=== PATIENT | male | born 1950 | race African-American/Black ===

== ENCOUNTER → 2017-10-27 | Outpatient (CLI) | payer MEDICARE, MEDICAID ==
[~2017-10-27] MED LIST: ACET-66; ALLO300 PO; AMLO-511; ASPI-1188 PO; ASPI-891; BUPR75 PO; CLOP75 PO; DICL-290; DIPH50; FAMO-136; ISOS60TA4 PO; MAG355OR32; METO25 PO; MULT-1259 PO; NITR0.4T SL; PSEU60 PO; SIMV-260 PO; TRAM50TA4 PO; TUSSIN; VALS1TAB48; [UNRECOGNIZED DRUG - CODE]
[2017-10-27 10:58] VITALS: BP 112/71
== END | disposition home or self-care (01) ==
LOC: SRCNTR 10:22
PROVIDERS: ATTEND Internal Medicine Cardiovascular Disease
DX: I11.9 Hypertensive heart disease without heart failure (principal); G44.009 Cluster headache syndrome, unspecified, not intractable; E66.9 Obesity, unspecified; I25.10 Atherosclerotic heart disease of native coronary artery without angina pectoris; N40.0 Benign prostatic hyperplasia without lower urinary tract symptoms; Z95.5 Presence of coronary angioplasty implant and graft; M25.552 Pain in left hip
CPT/HCPCS: G0463

== ENCOUNTER → 2017-11-01 | Outpatient (CLI) | payer MEDICARE, OTHER ==
[2017-11-01 15:05] LABS: BASOPHILS % (AUTO) 1.1 % (0.0-2.0); EOSINOPHILS % (AUTO) 3.8 % (1.0-6.0); HEMATOCRIT 40.4 % (41-53); HEMOGLOBIN 13.2 g/dL (13.5-17.5); LYMPHOCYTES # (AUTO) 2.5 K/uL (1.0-4.8); LYMPHOCYTES % (AUTO) 31.7 % (22.0-44.0); MEAN CORPUSCULAR HEMOGLOBIN 29.1 pg (26.0-34.0); MEAN CORPUSCULAR HGB CONC 32.7 G/dL (31.0-37.0); MEAN CORPUSCULAR VOLUME 89 fL (80-100); MONOCYTES # (AUTO) 0.6 K/uL (0.1-1.0); NEUTROPHILS # (AUTO) 4.4 K/uL (1.8-7.7); NEUTROPHILS % (AUTO) 55.4 % (40.0-70.0); PLATELET COUNT (AUTO) 258 K/uL (150-450); RED BLOOD CELL COUNT(AUTO) 4.54 MIL/uL (4.50-5.90); RED CELL DISTRIBUTION WIDTH 15.9 % (11.5-14.5)
[2017-11-01 15:16] LABS: BILIRUBIN,URINE NEGATIVE (NEGATIVE); GLUCOSE, URINE (UA) NEGATIVE (NEGATIVE); KETONES,URINE NEGATIVE (NEGATIVE); LEUKOCYTE ESTERASE ,URINE SMALL (NEGATIVE); NITRATE,URINE NEGATIVE (NEGATIVE); OCCULT BLOOD,URINE NEGATIVE (NEGATIVE); PH,URINE 5.5 (5.0-8.0); PROTEIN,URINE NEGATIVE (NEGATIVE); UROBILINOGEN,URINE 0.2 mg/dL (<=1.0)
[2017-11-01 15:22] LABS: APPEARANCE,URINE HAZY (CLEAR)
[2017-11-01 15:23] LABS: RBC,URINE None Seen /HPF (0-2)
[2017-11-01 15:24] LABS: BACTERIA,URINE Rare /HPF (None Seen); SQUAMOUS EPITHELIAL CELL,UR Few /LPF (None Seen)
[2017-11-01 15:28] LABS: ALANINE AMINOTRANSFERASE 29 U/L (12-78); ALBUMIN 3.9 g/dL (3.4-5.0); ALKALINE PHOSPHATASE 148 U/L (46-116); ANION GAP 9 mmol/L (8-16); ASPARTATE AMINOTRANSFERASE 21 U/L (15-37); BILIRUBIN,TOTAL 0.5 mg/dL (0.1-1.0); CALCIUM, TOTAL 9.2 mg/dL (8.8-10.5); CARBON DIOXIDE 26 mmol/L (22-29); CHLORIDE 105 mmol/L (98-107); CHOL/HDL RATIO 2.6 (4.2-7.3); CHOLESTEROL 103 mg/dL (131-200); CREATININE 1.03 mg/dL (0.60-1.30); GLOMERULAR FILTR. RATE CALC > 60 mL/min (>60); GLUCOSE,RANDOM 99 mg/dL (70-110); HDL CHOLESTEROL 40 mg/dL (40-60); LDL CHOL (CALC.) 46 mg/dL (0-130); POTASSIUM 4.2 mmol/L (3.5-5.1); SODIUM SERUM 140 mmol/L (136-145); THYROID STIMULATING HORMONE 1.75 uIU/mL (0.36-3.74); TOTAL PROTEIN, SERUM 7.9 g/dL (6.4-8.2); TRIGLYCERIDES 84 mg/dL (15-150); UREA NITROGEN, BLOOD 17 mg/dL (7-18)
[2017-11-01 15:41] LABS: PROSTATE SPECIFIC ANTIGEN 0.63 ng/mL (0.00-4.00)
== END | disposition home or self-care (01) ==
LOC: LABPV 14:39
PROVIDERS: ATTEND Internal Medicine Cardiovascular Disease
DX: I10 Essential (primary) hypertension (principal); N40.0 Benign prostatic hyperplasia without lower urinary tract symptoms
CPT/HCPCS: 84153; 84443; 87086

== ENCOUNTER → 2018-01-27 | Outpatient (CLI) | payer MEDICARE, MEDICAID ==
[~2018-01-27] VITALS: Ht 177.8 cm; Wt 88.0 kg
[~2018-01-27] MED LIST changes: -AMLO-511; -ASPI-891; -CLOP75 PO; -DICL-290; -TUSSIN; -VALS1TAB48; -[UNRECOGNIZED DRUG - CODE]
[2018-01-27 10:15] VITALS: BP 98/73
== END | disposition home or self-care (01) ==
LOC: SRCNTR 09:43
PROVIDERS: ATTEND Internal Medicine Cardiovascular Disease
DX: I11.9 Hypertensive heart disease without heart failure (principal); N40.0 Benign prostatic hyperplasia without lower urinary tract symptoms; M47.896 Other spondylosis, lumbar region; M10.9 Gout, unspecified; E78.5 Hyperlipidemia, unspecified; G44.009 Cluster headache syndrome, unspecified, not intractable
CPT/HCPCS: G0463

== ENCOUNTER → 2018-06-01 | Outpatient (CLI) | payer MEDICARE, MEDICAID ==
[~2018-06-01] VITALS: Ht 177.8 cm; Wt 93.0 kg
[2018-06-01 10:40] VITALS: BP 132/68
== END | disposition home or self-care (01) ==
LOC: SRCNTR 10:14
PROVIDERS: ATTEND Internal Medicine Cardiovascular Disease
DX: I11.9 Hypertensive heart disease without heart failure (principal); J43.9 Emphysema, unspecified; E78.5 Hyperlipidemia, unspecified; G47.30 Sleep apnea, unspecified; M19.90 Unspecified osteoarthritis, unspecified site; G89.4 Chronic pain syndrome
CPT/HCPCS: G0463

== ENCOUNTER → 2018-08-15 | Outpatient (CLI) | payer MEDICARE, OTHER ==
[~2018-08-15] MED LIST changes: +BUTA1CAP53 PO; +DIPH25 PO; -FAMO-136; +FAMO-136 PO; +LOSA1TAB7 PO; +PSEU30TA31 PO; +TAMS0.4C32 PO; +[UNRECOGNIZED DRUG - OTHER] PO
[2018-08-15 12:02] LABS: BASOPHILS % (AUTO) 1.2 % (0.0-2.0); EOSINOPHILS % (AUTO) 6.4 % (1.0-6.0); HEMATOCRIT 41.3 % (41-53); HEMOGLOBIN 13.3 g/dL (13.5-17.5); LYMPHOCYTES % (AUTO) 31.2 % (22.0-44.0); MEAN CORPUSCULAR HEMOGLOBIN 29.3 pg (26.0-34.0); MEAN CORPUSCULAR HGB CONC 32.2 G/dL (31.0-37.0); MEAN CORPUSCULAR VOLUME 91 fL (80-100); MONOCYTES # (AUTO) 0.7 K/uL (0.1-1.0); MONOCYTES % (AUTO) 10.3 % (2.0-9.0); NEUTROPHILS # (AUTO) 3.2 K/uL (1.8-7.7); NEUTROPHILS % (AUTO) 50.9 % (40.0-70.0); PLATELET COUNT (AUTO) 243 K/uL (150-450); RED BLOOD CELL COUNT(AUTO) 4.54 MIL/uL (4.50-5.90); RED CELL DISTRIBUTION WIDTH 14.9 % (11.5-14.5)
[2018-08-15 12:11] LABS: APPEARANCE,URINE CLEAR (CLEAR); BILIRUBIN,URINE NEGATIVE (NEGATIVE); GLUCOSE, URINE (UA) NEGATIVE (NEGATIVE); KETONES,URINE NEGATIVE (NEGATIVE); LEUKOCYTE ESTERASE ,URINE NEGATIVE (NEGATIVE); NITRATE,URINE NEGATIVE (NEGATIVE); OCCULT BLOOD,URINE NEGATIVE (NEGATIVE); PH,URINE 5.5 (5.0-8.0); PROTEIN,URINE NEGATIVE (NEGATIVE); UROBILINOGEN,URINE 0.2 mg/dL (<=1.0)
[2018-08-15 12:52] LABS: BACTERIA,URINE None Seen /HPF (None Seen); RBC,URINE 0-2 /HPF (0-2); SQUAMOUS EPITHELIAL CELL,UR Few /LPF (None Seen); WBC,URINE 0-2 /HPF (0-5)
[2018-08-15 13:26] LABS: ALANINE AMINOTRANSFERASE 27 U/L (12-78); ALBUMIN 3.6 g/dL (3.4-5.0); ALKALINE PHOSPHATASE 142 U/L (46-116); ANION GAP 10 mmol/L (8-16); ASPARTATE AMINOTRANSFERASE 28 U/L (15-37); BILIRUBIN,TOTAL 0.3 mg/dL (0.1-1.0); CALCIUM, TOTAL 8.7 mg/dL (8.8-10.5); CARBON DIOXIDE 26 mmol/L (22-29); CHLORIDE 107 mmol/L (98-107); CHOL/HDL RATIO 2.7 (4.2-7.3); CHOLESTEROL 89 mg/dL (131-200); CREATININE 0.99 mg/dL (0.60-1.30); GLOMERULAR FILTR. RATE CALC > 60 mL/min (>60); GLUCOSE,RANDOM 102 mg/dL (70-110); HDL CHOLESTEROL 33 mg/dL (40-60); LDL CHOL (CALC.) 41 mg/dL (0-130); POTASSIUM 4.4 mmol/L (3.5-5.1); SODIUM SERUM 143 mmol/L (136-145); TOTAL PROTEIN, SERUM 7.2 g/dL (6.4-8.2); TRIGLYCERIDES 75 mg/dL (15-150); UREA NITROGEN, BLOOD 19 mg/dL (7-18)
[2018-08-15 13:45] LABS: PROSTATE SPECIFIC ANTIGEN 0.48 ng/mL (0.00-4.00)
== END | disposition home or self-care (01) ==
LOC: LABPV 10:10
PROVIDERS: ATTEND Internal Medicine Cardiovascular Disease
DX: I10 Essential (primary) hypertension (principal)
CPT/HCPCS: 84153

== ENCOUNTER → 2018-09-22 | Outpatient (CLI) | payer MEDICARE, OTHER ==
[~2018-09-22] VITALS: Ht 177.8 cm; Wt 93.0 kg
[~2018-09-22] MED LIST changes: -ACET-66; -DIPH50; -MAG355OR32; -PSEU60 PO
[2018-09-22 14:28] VITALS: BP 106/69
== END | disposition home or self-care (01) ==
LOC: SRCNTR 14:26
PROVIDERS: ATTEND Internal Medicine Cardiovascular Disease
DX: I25.10 Atherosclerotic heart disease of native coronary artery without angina pectoris (principal); J44.9 Chronic obstructive pulmonary disease, unspecified; I10 Essential (primary) hypertension; E78.5 Hyperlipidemia, unspecified; I73.9 Peripheral vascular disease, unspecified
CPT/HCPCS: G0463

== ENCOUNTER → 2018-09-30 | Outpatient (CLI) | payer MEDICARE, OTHER | END | disposition home or self-care (01) | LOC: RADPV 08:33 | PROVIDERS: ATTEND Internal Medicine Cardiovascular Disease | DX: I70.203 Unspecified atherosclerosis of native arteries of extremities, bilateral legs (principal); I25.10 Atherosclerotic heart disease of native coronary artery without angina pectoris | CPT/HCPCS: 93306; 93925 ==

== ENCOUNTER → 2019-08-23 | Outpatient (CLI) | payer MEDICARE, OTHER ==
[~2019-08-23] MED LIST changes: -ASPI-1188 PO; +ASPI-1522 PO; +ATOR40TA28 PO; +CLOP75TA3 PO; -DIPH25 PO; +DIPH50 PO; +LOSA1TAB42 PO; -LOSA1TAB7 PO; -PSEU30TA31 PO; +SIMV-259 PO; +TAMS-13 PO; -TAMS0.4C32 PO; -TRAM50TA4 PO; -[UNRECOGNIZED DRUG - OTHER] PO
[2019-08-23 16:13] LABS: BASOPHILS % (AUTO) 0.7 % (0.0-2.0); EOSINOPHILS % (AUTO) 2.6 % (1.0-6.0); HEMATOCRIT 38.3 % (41-53); HEMOGLOBIN 12.3 g/dL (13.5-17.5); LYMPHOCYTES # (AUTO) 1.9 K/uL (1.0-4.8); LYMPHOCYTES % (AUTO) 24.2 % (22.0-44.0); MEAN CORPUSCULAR HEMOGLOBIN 29.2 pg (26.0-34.0); MEAN CORPUSCULAR HGB CONC 32.2 G/dL (31.0-37.0); MEAN CORPUSCULAR VOLUME 91 fL (80-100); MONOCYTES # (AUTO) 0.7 K/uL (0.1-1.0); MONOCYTES % (AUTO) 9.5 % (2.0-9.0); NEUTROPHILS # (AUTO) 4.9 K/uL (1.8-7.7); PLATELET COUNT (AUTO) 227 K/uL (150-450); RED BLOOD CELL COUNT(AUTO) 4.22 MIL/uL (4.50-5.90); RED CELL DISTRIBUTION WIDTH 16.6 % (11.5-14.5)
[2019-08-23 16:18] LABS: APPEARANCE,URINE CLEAR (CLEAR); BILIRUBIN,URINE NEGATIVE (NEGATIVE); GLUCOSE, URINE (UA) NEGATIVE (NEGATIVE); KETONES,URINE NEGATIVE (NEGATIVE); LEUKOCYTE ESTERASE ,URINE NEGATIVE (NEGATIVE); NITRATE,URINE NEGATIVE (NEGATIVE); OCCULT BLOOD,URINE NEGATIVE (NEGATIVE); PROTEIN,URINE NEGATIVE (NEGATIVE); UROBILINOGEN,URINE 0.2 mg/dL (<=1.0)
[2019-08-23 16:28] LABS: ALANINE AMINOTRANSFERASE 28 U/L (12-78); ALBUMIN 4.1 g/dL (3.4-5.0); ALKALINE PHOSPHATASE 151 U/L (46-116); ANION GAP 9 mmol/L (8-16); ASPARTATE AMINOTRANSFERASE 20 U/L (15-37); BILIRUBIN,TOTAL 0.4 mg/dL (0.1-1.0); CALCIUM, TOTAL 9.2 mg/dL (8.8-10.5); CARBON DIOXIDE 26 mmol/L (22-29); CHLORIDE 105 mmol/L (98-107); CREATININE 1.07 mg/dL (0.60-1.30); GLOMERULAR FILTR. RATE CALC > 60 mL/min (>60); GLUCOSE,RANDOM 82 mg/dL (70-110); POTASSIUM 4.2 mmol/L (3.5-5.1); SODIUM SERUM 140 mmol/L (136-145); TOTAL PROTEIN, SERUM 7.6 g/dL (6.4-8.2); UREA NITROGEN, BLOOD 15 mg/dL (7-18)
== END | disposition home or self-care (01) ==
LOC: PUC 14:53
DX: R10.9 Unspecified abdominal pain (principal)

== ENCOUNTER → 2019-10-05 | Outpatient (CLI) | payer MEDICARE, OTHER ==
[~2019-10-05] VITALS: Ht 177.8 cm; Wt 97.0 kg
[2019-10-05 12:21] VITALS: BP 125/73
== END | disposition home or self-care (01) ==
LOC: SRCNTR 12:20
PROVIDERS: ATTEND Hospitalist
DX: J44.9 Chronic obstructive pulmonary disease, unspecified (principal); M16.11 Unilateral primary osteoarthritis, right hip; E78.5 Hyperlipidemia, unspecified; N40.1 Benign prostatic hyperplasia with lower urinary tract symptoms; M51.86 Other intervertebral disc disorders, lumbar region; I25.10 Atherosclerotic heart disease of native coronary artery without angina pectoris; L29.0 Pruritus ani
CPT/HCPCS: G0463

== ENCOUNTER → 2020-01-04 | Outpatient (CLI) | payer MEDICARE, OTHER ==
[~2020-01-04] MED LIST changes: +ALLO-45 PO; -ALLO300 PO; -ATOR40TA28 PO; +CLOP-31 PO; -CLOP75TA3 PO; -SIMV-259 PO
== END | disposition home or self-care (01) ==
LOC: SRCNTR 15:28
PROVIDERS: ATTEND Hospitalist
DX: I25.10 Atherosclerotic heart disease of native coronary artery without angina pectoris (principal); M19.90 Unspecified osteoarthritis, unspecified site; M51.36 Other intervertebral disc degeneration, lumbar region; M25.552 Pain in left hip; G44.009 Cluster headache syndrome, unspecified, not intractable; J44.9 Chronic obstructive pulmonary disease, unspecified; E78.5 Hyperlipidemia, unspecified; Z95.5 Presence of coronary angioplasty implant and graft
CPT/HCPCS: Q3014

== ENCOUNTER → 2020-04-04 | Outpatient (CLI) | payer MEDICARE, OTHER | END | disposition home or self-care (01) | LOC: SRCNTR 11:51 | PROVIDERS: ATTEND Hospitalist | DX: I25.10 Atherosclerotic heart disease of native coronary artery without angina pectoris (principal); N40.0 Benign prostatic hyperplasia without lower urinary tract symptoms; M19.90 Unspecified osteoarthritis, unspecified site; M25.552 Pain in left hip; J44.9 Chronic obstructive pulmonary disease, unspecified; E78.5 Hyperlipidemia, unspecified; G44.009 Cluster headache syndrome, unspecified, not intractable; E66.01 Morbid (severe) obesity due to excess calories; G95.89 Other specified diseases of spinal cord; Z79.899 Other long term (current) drug therapy; Z88.8 Allergy status to other drugs, medicaments and biological substances; Z95.828 Presence of other vascular implants and grafts | CPT/HCPCS: Q3014 ==

== ENCOUNTER → 2020-04-26 | Outpatient (CLI) | payer MEDICARE, OTHER ==
[2020-04-26 12:32] LABS: BASOPHILS % (AUTO) 0.7 % (0.0-2.0); EOSINOPHILS % (AUTO) 4.6 % (1.0-6.0); HEMATOCRIT 41.1 % (41-53); HEMOGLOBIN 12.9 g/dL (13.5-17.5); LYMPHOCYTES # (AUTO) 2.2 K/uL (1.0-4.8); LYMPHOCYTES % (AUTO) 32.3 % (22.0-44.0); MEAN CORPUSCULAR HEMOGLOBIN 28.5 pg (26.0-34.0); MEAN CORPUSCULAR HGB CONC 31.4 G/dL (31.0-37.0); MEAN CORPUSCULAR VOLUME 91 fL (80-100); MONOCYTES # (AUTO) 0.8 K/uL (0.1-1.0); MONOCYTES % (AUTO) 11.5 % (2.0-9.0); NEUTROPHILS # (AUTO) 3.5 K/uL (1.8-7.7); NEUTROPHILS % (AUTO) 50.9 % (40.0-70.0); PLATELET COUNT (AUTO) 243 K/uL (150-450); RED BLOOD CELL COUNT(AUTO) 4.51 MIL/uL (4.50-5.90); RED CELL DISTRIBUTION WIDTH 15.4 % (11.5-14.5)
[2020-04-26 12:40] LABS: ALANINE AMINOTRANSFERASE 32 U/L (12-78); ALBUMIN 3.9 g/dL (3.4-5.0); ALKALINE PHOSPHATASE 170 U/L (46-116); ANION GAP 5 mmol/L (8-16); ASPARTATE AMINOTRANSFERASE 38 U/L (15-37); BILIRUBIN,TOTAL 0.3 mg/dL (0.1-1.0); CALCIUM, TOTAL 8.8 mg/dL (8.8-10.5); CARBON DIOXIDE 29 mmol/L (22-29); CHLORIDE 111 mmol/L (98-107); CREATININE 1.26 mg/dL (0.60-1.30); GLOMERULAR FILTR. RATE CALC > 60 mL/min (>60); GLUCOSE,RANDOM 117 mg/dL (70-110); POTASSIUM 4.7 mmol/L (3.5-5.1); SODIUM SERUM 145 mmol/L (136-145); TOTAL PROTEIN, SERUM 7.4 g/dL (6.4-8.2); UREA NITROGEN, BLOOD 20 mg/dL (7-18)
[2020-04-26 13:03] LABS: PROSTATE SPECIFIC ANTIGEN 0.65 ng/mL (0.00-4.00)
== END | disposition home or self-care (01) ==
LOC: LABPV 10:02
PROVIDERS: ATTEND Hospitalist
DX: N40.1 Benign prostatic hyperplasia with lower urinary tract symptoms (principal); I25.10 Atherosclerotic heart disease of native coronary artery without angina pectoris
CPT/HCPCS: 84153

== ENCOUNTER → 2020-07-04 | Outpatient (CLI) | payer MEDICARE, OTHER ==
[~2020-07-04] VITALS: Ht 175.3 cm; Wt 97.7 kg
[2020-07-04 11:20] VITALS: BP 105/64
== END | disposition home or self-care (01) ==
LOC: SRCNTR 10:51
PROVIDERS: ATTEND Hospitalist
DX: E78.5 Hyperlipidemia, unspecified (principal); M19.90 Unspecified osteoarthritis, unspecified site; J44.9 Chronic obstructive pulmonary disease, unspecified; M25.552 Pain in left hip; N40.0 Benign prostatic hyperplasia without lower urinary tract symptoms; Z95.1 Presence of aortocoronary bypass graft
CPT/HCPCS: G0463

== ENCOUNTER → 2020-09-12 | Outpatient (CLI) | payer MEDICARE, OTHER ==
[~2020-09-12] VITALS: Ht 177.8 cm; Wt 99.0 kg
[~2020-09-12] MED LIST changes: -CLOP-31 PO; +CLOP75TA60 PO; -ISOS60TA4 PO; +ISOS60TA77 PO
[2020-09-12 15:40] VITALS: BP 119/74
== END | disposition home or self-care (01) ==
LOC: SRCNTR 11:13
PROVIDERS: ATTEND Hospitalist
DX: Z09 Encounter for follow-up examination after completed treatment for conditions other than malignant neoplasm (principal); N40.0 Benign prostatic hyperplasia without lower urinary tract symptoms; M19.90 Unspecified osteoarthritis, unspecified site; M51.36 Other intervertebral disc degeneration, lumbar region; M25.552 Pain in left hip; G44.009 Cluster headache syndrome, unspecified, not intractable; J44.9 Chronic obstructive pulmonary disease, unspecified; I25.10 Atherosclerotic heart disease of native coronary artery without angina pectoris; E78.5 Hyperlipidemia, unspecified; N52.9 Male erectile dysfunction, unspecified; Z79.82 Long term (current) use of aspirin; Z79.899 Other long term (current) drug therapy; Z98.61 Coronary angioplasty status; Z88.0 Allergy status to penicillin
CPT/HCPCS: G0463; Z7500

== ENCOUNTER 2020-09-17 16:34 | Emergency (ER) | payer MEDICARE, OTHER ==
[~2020-09-17] VITALS: Ht 177.8 cm; Wt 95.5 kg
[2020-09-17 16:38] VITALS: BP 121/71
== END 2020-09-17 17:14 | disposition home or self-care (01) ==
LOC: EMS 16:36
DX: K08.89 Other specified disorders of teeth and supporting structures (principal); I25.10 Atherosclerotic heart disease of native coronary artery without angina pectoris; E78.00 Pure hypercholesterolemia, unspecified; I10 Essential (primary) hypertension; F17.210 Nicotine dependence, cigarettes, uncomplicated; Z88.6 Allergy status to analgesic agent; Z79.82 Long term (current) use of aspirin
CPT/HCPCS: 99283; Z7502

== ENCOUNTER → 2020-12-11 | Outpatient (CLI) | payer MEDICARE, OTHER ==
[~2020-12-11] VITALS: Ht 177.8 cm; Wt 102.0 kg
[2020-12-11 09:57] VITALS: BP 133/77
== END | disposition home or self-care (01) ==
LOC: SRCNTR 09:45
PROVIDERS: ATTEND Hospitalist
DX: M25.562 Pain in left knee (principal); M25.561 Pain in right knee; I25.10 Atherosclerotic heart disease of native coronary artery without angina pectoris; I11.9 Hypertensive heart disease without heart failure; N40.0 Benign prostatic hyperplasia without lower urinary tract symptoms; M19.90 Unspecified osteoarthritis, unspecified site; G44.009 Cluster headache syndrome, unspecified, not intractable; E66.9 Obesity, unspecified; M25.552 Pain in left hip; M10.9 Gout, unspecified; Z98.61 Coronary angioplasty status
CPT/HCPCS: G0463

== ENCOUNTER → 2021-01-10 | Outpatient (CLI) | payer MEDICARE, OTHER | END | disposition home or self-care (01) | LOC: LABPV 10:39 | PROVIDERS: ATTEND Hospitalist | DX: M10.9 Gout, unspecified (principal) | CPT/HCPCS: 84550 ==

== ENCOUNTER → 2021-03-19 | Outpatient (CLI) | payer MEDICARE, OTHER ==
[2021-03-19 11:46] VITALS: BP 123/81
== END | disposition home or self-care (01) ==
LOC: SRCNTR 10:34
PROVIDERS: ATTEND Hospitalist
DX: N40.0 Benign prostatic hyperplasia without lower urinary tract symptoms (principal); I11.9 Hypertensive heart disease without heart failure; I25.10 Atherosclerotic heart disease of native coronary artery without angina pectoris; M19.90 Unspecified osteoarthritis, unspecified site; G44.009 Cluster headache syndrome, unspecified, not intractable; E66.9 Obesity, unspecified; M25.552 Pain in left hip; Z98.61 Coronary angioplasty status
CPT/HCPCS: G0463

== ENCOUNTER → 2021-05-28 | Outpatient (CLI) | payer MEDICARE, OTHER ==
[~2021-05-28] VITALS: Ht 177.8 cm; Wt 100.0 kg
[2021-05-28 10:20] VITALS: BP 117/66
== END | disposition home or self-care (01) ==
LOC: SRCNTR 09:55
PROVIDERS: ATTEND Hospitalist
DX: I11.9 Hypertensive heart disease without heart failure (principal); I25.10 Atherosclerotic heart disease of native coronary artery without angina pectoris; N40.0 Benign prostatic hyperplasia without lower urinary tract symptoms; M19.90 Unspecified osteoarthritis, unspecified site; M51.26 Other intervertebral disc displacement, lumbar region; G44.009 Cluster headache syndrome, unspecified, not intractable; E66.9 Obesity, unspecified; M25.552 Pain in left hip; Z98.61 Coronary angioplasty status
CPT/HCPCS: G0463; Z7500

== ENCOUNTER → 2021-06-05 | Outpatient (CLI) | payer MEDICARE, OTHER ==
[2021-06-05 13:26] LABS: BASOPHILS % (AUTO) 1.3 % (0.0-2.0); EOSINOPHILS % (AUTO) 2.5 % (1.0-6.0); LYMPHOCYTES # (AUTO) 2.2 K/uL (1.0-4.8); LYMPHOCYTES % (AUTO) 27.2 % (22.0-44.0); MEAN CORPUSCULAR HEMOGLOBIN 28.8 pg (26.0-34.0); MEAN CORPUSCULAR HGB CONC 31.8 G/dL (31.0-37.0); MEAN CORPUSCULAR VOLUME 91 fL (80-100); MONOCYTES # (AUTO) 0.7 K/uL (0.1-1.0); MONOCYTES % (AUTO) 8.7 % (2.0-9.0); NEUTROPHILS # (AUTO) 4.9 K/uL (1.8-7.7); NEUTROPHILS % (AUTO) 60.3 % (40.0-70.0); PLATELET COUNT (AUTO) 275 K/uL (150-450); RED BLOOD CELL COUNT(AUTO) 4.53 MIL/uL (4.50-5.90); RED CELL DISTRIBUTION WIDTH 15.3 % (11.5-14.5)
[2021-06-05 13:50] LABS: ALANINE AMINOTRANSFERASE 36 U/L (12-78); ALKALINE PHOSPHATASE 182 U/L (46-116); ANION GAP 10 mmol/L (8-16); ASPARTATE AMINOTRANSFERASE 23 U/L (15-37); BILIRUBIN,TOTAL 0.7 mg/dL (0.1-1.0); CALCIUM, TOTAL 9.6 mg/dL (8.8-10.5); CARBON DIOXIDE 26 mmol/L (22-29); CHLORIDE 106 mmol/L (98-107); CHOLESTEROL 118 mg/dL (131-200); CREATININE 1.15 mg/dL (0.60-1.30); GLOMERULAR FILTR. RATE CALC > 60 mL/min (>60); GLUCOSE,RANDOM 109 mg/dL (70-110); HDL CHOLESTEROL 39 mg/dL (40-60); LDL CHOL (CALC.) 55 mg/dL (0-130); POTASSIUM 4.4 mmol/L (3.5-5.1); SODIUM SERUM 142 mmol/L (136-145); THYROID STIMULATING HORMONE 0.96 uIU/mL (0.36-3.74); TOTAL PROTEIN, SERUM 8.2 g/dL (6.4-8.2); TRIGLYCERIDES 122 mg/dL (15-150); UREA NITROGEN, BLOOD 21 mg/dL (7-18)
[2021-06-05 13:59] LABS: PROSTATE SPECIFIC ANTIGEN 0.54 ng/mL (0.00-4.00)
== END | disposition home or self-care (01) ==
LOC: LABPV 12:49
PROVIDERS: ATTEND Hospitalist
DX: Z01.89 Encounter for other specified special examinations (principal); N40.0 Benign prostatic hyperplasia without lower urinary tract symptoms; Z79.899 Other long term (current) drug therapy
CPT/HCPCS: 80053; 80061; 82306; 84153; 84443; 85025

== ENCOUNTER → 2021-08-28 | Outpatient (CLI) | payer MEDICARE, OTHER ==
[~2021-08-28] VITALS: Ht 177.8 cm; Wt 98.0 kg
[~2021-08-28] MED LIST changes: +TRAM50TA4 PO
[2021-08-28 10:32] VITALS: BP 128/75
== END | disposition home or self-care (01) ==
LOC: SRCNTR 10:03
PROVIDERS: ATTEND Hospitalist
DX: I11.9 Hypertensive heart disease without heart failure (principal); I25.10 Atherosclerotic heart disease of native coronary artery without angina pectoris; N40.0 Benign prostatic hyperplasia without lower urinary tract symptoms; M19.90 Unspecified osteoarthritis, unspecified site; M51.36 Other intervertebral disc degeneration, lumbar region; G44.009 Cluster headache syndrome, unspecified, not intractable; E66.9 Obesity, unspecified; M25.552 Pain in left hip; M54.50 Low back pain, unspecified; Z95.5 Presence of coronary angioplasty implant and graft
CPT/HCPCS: G0463

== ENCOUNTER → 2021-09-04 | Outpatient (CLI) | payer MEDICARE, OTHER | END | disposition home or self-care (01) | LOC: RADMN 08:46 | PROVIDERS: ATTEND Hospitalist | DX: M17.12 Unilateral primary osteoarthritis, left knee (principal); M25.462 Effusion, left knee; M76.52 Patellar tendinitis, left knee; M25.562 Pain in left knee | CPT/HCPCS: 73562-TC ==

== ENCOUNTER → 2021-10-29 | Outpatient (CLI) | payer MEDICARE, OTHER ==
[~2021-10-29] VITALS: Ht 177.8 cm; Wt 99.2 kg
[~2021-10-29] MED LIST changes: +BUPR-344 PO; -BUPR75 PO
[2021-10-29 09:32] VITALS: BP 128/75
== END | disposition home or self-care (01) ==
LOC: SRCNTR 09:04
PROVIDERS: ATTEND Hospitalist
DX: Z09 Encounter for follow-up examination after completed treatment for conditions other than malignant neoplasm (principal); M54.50 Low back pain, unspecified
CPT/HCPCS: G0463; Z7500

== ENCOUNTER → 2021-12-24 | Outpatient (CLI) | payer MEDICARE, OTHER ==
[~2021-12-24] VITALS: Ht 177.8 cm; Wt 96.4 kg
[2021-12-24 10:02] VITALS: BP 121/71
== END | disposition home or self-care (01) ==
LOC: SRCNTR 09:37
PROVIDERS: ATTEND Hospitalist
DX: I10 Essential (primary) hypertension (principal); E78.5 Hyperlipidemia, unspecified; M54.50 Low back pain, unspecified; N40.1 Benign prostatic hyperplasia with lower urinary tract symptoms; M25.552 Pain in left hip
CPT/HCPCS: G0463

== ENCOUNTER → 2022-01-01 | Outpatient (CLI) | payer MEDICARE, OTHER ==
[2022-01-01 12:32] LABS: BASOPHILS % (AUTO) 0.9 % (0.0-2.0); EOSINOPHILS % (AUTO) 3.4 % (1.0-6.0); HEMATOCRIT 39.9 % (41-53); HEMOGLOBIN 13.2 g/dL (13.5-17.5); LYMPHOCYTES # (AUTO) 1.8 K/uL (1.0-4.8); LYMPHOCYTES % (AUTO) 23.2 % (22.0-44.0); MEAN CORPUSCULAR HEMOGLOBIN 29.1 pg (26.0-34.0); MEAN CORPUSCULAR VOLUME 88 fL (80-100); MONOCYTES # (AUTO) 0.6 K/uL (0.1-1.0); MONOCYTES % (AUTO) 7.7 % (2.0-9.0); NEUTROPHILS # (AUTO) 5.1 K/uL (1.8-7.7); NEUTROPHILS % (AUTO) 64.8 % (40.0-70.0); PLATELET COUNT (AUTO) 286 K/uL (150-450); RED BLOOD CELL COUNT(AUTO) 4.53 MIL/uL (4.50-5.90); RED CELL DISTRIBUTION WIDTH 15.9 % (11.5-14.5)
[2022-01-01 12:46] LABS: ALANINE AMINOTRANSFERASE 21 U/L (12-78); ALKALINE PHOSPHATASE 181 U/L (46-116); ANION GAP 12 mmol/L (8-16); ASPARTATE AMINOTRANSFERASE 19 U/L (15-37); BILIRUBIN,TOTAL 0.6 mg/dL (0.1-1.0); CALCIUM, TOTAL 9.5 mg/dL (8.8-10.5); CARBON DIOXIDE 25 mmol/L (22-29); CHLORIDE 104 mmol/L (98-107); CHOL/HDL RATIO 2.5 (4.2-7.3); CHOLESTEROL 121 mg/dL (131-200); CREATININE 1.09 mg/dL (0.60-1.30); GLOMERULAR FILTR. RATE CALC > 60 mL/min (>60); GLUCOSE,RANDOM 112 mg/dL (70-110); HDL CHOLESTEROL 49 mg/dL (40-60); LDL CHOL (CALC.) 55 mg/dL (0-130); POTASSIUM 4.5 mmol/L (3.5-5.1); SODIUM SERUM 141 mmol/L (136-145); TOTAL PROTEIN, SERUM 8.2 g/dL (6.4-8.2); TRIGLYCERIDES 85 mg/dL (15-150); UREA NITROGEN, BLOOD 16 mg/dL (7-18)
== END | disposition home or self-care (01) ==
LOC: LABMN 12:01
PROVIDERS: ATTEND Hospitalist
DX: I10 Essential (primary) hypertension (principal)
CPT/HCPCS: 80053; 80061; 84153; 85025

== ENCOUNTER 2024-12-04 10:28 | Inpatient (IN) | payer MEDICARE, OTHER ==
[~2024-12-04] VITALS: Ht 177.8 cm; Wt 75.7 kg
[~2024-12-04 10:28] MED LIST changes: -CLOP75TA60 PO; +CLOP75TA83 PO; -TAMS-13 PO; +TAMS0.4C94 PO; -TRAM50TA4 PO; +TRAM50TA5 PO
[2024-12-04] MEDS: SODIUM CHLORIDE 0.9% 1,000 ML IV ONE ×2 (10:53→11:41)
[2024-12-04 10:59] LABS: HEMATOCRIT 32.8 % (41-53); HEMOGLOBIN 10.7 g/dL (13.5-17.5); MEAN CORPUSCULAR HEMOGLOBIN 27.3 pg (26.0-34.0); MEAN CORPUSCULAR HGB CONC 32.5 G/dL (31.0-37.0); MEAN CORPUSCULAR VOLUME 84 fL (80-100)
[2024-12-04 11:04] LABS: ANION GAP 18 mmol/L (8-16); CALCIUM, TOTAL 10.5 mg/dL (8.8-10.5); CARBON DIOXIDE 19 mmol/L (22-29); CHLORIDE 101 mmol/L (98-107); CREATININE 4.22 mg/dL (0.60-1.30); GLOMERULAR FILTR. RATE CALC 17 mL/min (>60); GLUCOSE,RANDOM 154 mg/dL (70-110); POTASSIUM 5.9 mmol/L (3.5-5.1); SODIUM SERUM 138 mmol/L (136-145)
[2024-12-04 11:10] LABS: COVID AG,FIA SOURCE NASAL SWAB
[2024-12-04 11:13] LABS: TROPONIN I-HIGH SENSITIVITY 70 ng/L (<76); WHITE BLOOD COUNT (AUTO) 38.8 K/uL (4.5-11.0)
[2024-12-04 11:14] LABS: PLATELET COUNT (AUTO) 819 K/uL (150-450)
[2024-12-04 11:18] LABS: ALANINE AMINOTRANSFERASE 165 U/L (12-78); ALBUMIN 2.2 g/dL (3.4-5.0); ALKALINE PHOSPHATASE 523 U/L (46-116); ASPARTATE AMINOTRANSFERASE 135 U/L (15-37); BILIRUBIN,TOTAL 3.7 mg/dL (0.1-1.0); CREATINE KINASE, TOTAL ONLY 42 U/L (39-308); TOTAL PROTEIN, SERUM 10.8 g/dL (6.4-8.2)
[2024-12-04 11:19] LABS: UREA NITROGEN, BLOOD 177 mg/dL (7-18)
[2024-12-04 11:20] LABS: LACTIC ACID 2.1 mmol/L (0.4-2.0)
[2024-12-04] MEDS ORDERED: VANCOMYCIN 1.25 GM/WATER(PEG) 250 ML IV ONE (11:30)
[2024-12-04 11:33] LABS: INFLUENZA TYPE A NEGATIVE FOR TYPE A (NEGATIVE); INFLUENZA TYPE B NEGATIVE FOR TYPE B (NEGATIVE); SARS-COV2 (COVID) ANTIGEN,FIA Negative (Negative)
[2024-12-04] MEDS: SODIUM ZIRCONIUM CYCLOSILICATE 10 GM POWDER PACKET PO ONE (11:35)
[2024-12-04] MEDS: DEXTROSE 50%-WATER 25 GM/50 ML SYRINGE IVP ONE (11:36)
[2024-12-04] MEDS: INSULIN REGULAR, HUMAN 100 UNITS/ML IVP ONE (11:39)
[2024-12-04] MEDS: FUROSEMIDE 20 MG/2 ML VIAL IVP ONE (11:40)
[2024-12-04] MEDS: CALCIUM GLUCONATE 100 MG/ML 10 ML IVP ONE (11:40)
[2024-12-04 11:49] LABS: B-TYPE NATRIURETIC PEPTIDE 68 pg/mL (0-100)
[2024-12-04 11:50] LABS: BAND NEUTROPHILS % (MANUAL) 2 % (0-5); LYMPHOCYTES % (MANUAL) 7 % (22-44); MONOCYTES % (MANUAL) 3 % (2-9); RBC MORPHOLOGY COMMENT NORMAL RBC MORPH; SEGMENTED NEUTROPHILS % 88 % (40-70); TOTAL CELLS COUNTED 100
[2024-12-04] MEDS: PIPERACILLIN/TAZO 3.375 GM/D5W 50 ML IV ONE (12:03)
[2024-12-04 12:22] VITALS: PULSE 111; RESP 20; O2SAT 100
[2024-12-04] MEDS: ALBUTEROL SULFATE 2.5 MG/0.5 ML 5 ML NEB SOLUTION NEB ONE (12:22)
[2024-12-04] MEDS: VANCOMYCIN HCL 1.25 GM in DEXTROSE 5%-WATER 250 ML IV ONE (12:39)
[2024-12-04 13:00] VITALS: PULSE 100; RESP 20; O2SAT 100
[2024-12-04] MEDS: SODIUM BICARBONATE 75 MEQ in DEXTROSE 5%-0.45% SODIUM CHL 1,000 ML IV SCH (13:37)
[2024-12-04] MEDS ORDERED: MAGNESIUM HYDROXIDE SUSPENSION 30 ML UDCUP PO PRN ×2 (15:15)
[2024-12-04] MEDS ORDERED: ZOLPIDEM TARTRATE 5 MG TABLET PO PRN ×2 (15:15)
[2024-12-04] MEDS ORDERED: ACETAMINOPHEN 325 MG TABLET PO PRN (15:15)
[2024-12-04] MEDS ORDERED: MORPHINE SULFATE 2 MG/ML SYRINGE IVP PRN (15:15)
[2024-12-04] MEDS ORDERED: BISACODYL 10 MG RECTAL RECTAL SUPPOSITORY PR PRN ×2 (15:15)
[2024-12-04] MEDS ORDERED: ONDANSETRON HCL 4 MG/2 ML VIAL IVP PRN ×2 (15:15)
[2024-12-04] MEDS ORDERED: HYDROCODONE/ACETAMINOPHEN 5-325 MG TABLET PO PRN (15:15)
[2024-12-04] MEDS ORDERED: BUPR-113 PO (15:28)
[2024-12-04] MEDS ORDERED: ATOR20TA65 PO (15:28)
[2024-12-04 15:48] LABS: AMPHET/METH SCREEN,URINE NEGATIVE (NEGATIVE); BARBITURATE SCREEN, URINE NEGATIVE (NEGATIVE); BENZODIAZEPINES SCREEN,URINE NEGATIVE (NEGATIVE); CANNABINOID SCREEN,URINE NEGATIVE (NEGATIVE); COCAINE SCREEN,URINE NEGATIVE (NEGATIVE); METHADONE SCREEN, URINE NEGATIVE (NEGATIVE); OPIATE SCREEN,URINE NEGATIVE (NEGATIVE); PHENCYCLIDINE SCREEN,URINE NEGATIVE (NEGATIVE)
[2024-12-04 15:49] LABS: ALCOHOL, URINE DRUG SCREEN NEGATIVE (NEGATIVE)
[2024-12-04 16:00] VITALS: BP 72/57; PULSE 132; PULSE 133; RESP 14; TEMP 98.8; O2SAT 90
[2024-12-04] MEDS ORDERED: HEPARIN SODIUM,PORCINE 5,000 UNITS/ML VIAL SQ SCH (16:00)
[2024-12-04] MEDS: HEPARIN SODIUM,PORCINE 5,000 UNITS/ML VIAL SQ SCH (16:00)
[2024-12-04] MEDS: NOREPINEPHRINE 8 MG/0.9 % NACL 250 ML IV PRN (16:30)
[2024-12-04] MEDS: ALBUMIN HUMAN 25%-25GM/100ML 100 ML IV SCH (16:35)
[2024-12-04] MEDS: CefTRIAXone 1 GM/DEXTROSE 50 ML IV ONE (16:35)
[2024-12-04] MEDS: PHYTONADIONE 5 MG in SODIUM CHLORIDE 0.9% 50 ML IV ONE (16:35)
[2024-12-04] MEDS: VASOPRESSIN 40 UNITS in DEXTROSE 5%-WATER 98 ML IV PRN (17:16)
[2024-12-04] MEDS: MORPHINE SULFATE 2 MG/ML SYRINGE IVP PRN (18:43)
[2024-12-04 19:46] LABS: APPEARANCE,URINE TURBID (CLEAR); BILIRUBIN,URINE NEGATIVE (NEGATIVE); COLOR,URINE DARK RED (YELLOW); GLUCOSE, URINE (UA) NEGATIVE (NEGATIVE); KETONES,URINE NEGATIVE (NEGATIVE); LEUKOCYTE ESTERASE ,URINE NEGATIVE (NEGATIVE); NITRATE,URINE NEGATIVE (NEGATIVE); OCCULT BLOOD,URINE MODERATE (NEGATIVE); PH,URINE 7.5 (5.0-8.0); PROTEIN,URINE 30-70 mg/dL (NEGATIVE); UROBILINOGEN,URINE <=1.0 mg/dL (<=1.0)
[2024-12-04 19:54] LABS: CREATININE,URINE RANDOM 28.2 mg/dL (30.0-125.0)
[2024-12-04 20:00] VITALS: BP 108/63; PULSE 117; RESP 20; TEMP 98.7; O2SAT 100
[2024-12-04 20:13] LABS: RBC,URINE >100 /HPF (0-2)
[2024-12-04 20:14] LABS: BACTERIA,URINE Moderate /HPF (None Seen)
[2024-12-04] MEDS: TAMSULOSIN HCL 0.4 MG CAPSULE PO SCH (20:52)
[2024-12-04] MEDS: PIPERACILLIN SODIUM/TAZOBACTAM 2.25 GM in DEXTROSE 5%-WATER 50 ML IV SCH (20:52)
[2024-12-04] MEDS: SIMVASTATIN 20 MG TABLET PO SCH (20:52)
[2024-12-04] MEDS: DOCUSATE SODIUM 100 MG CAPSULE PO SCH (20:52)
[2024-12-04] MEDS ORDERED: DOCUSATE SODIUM 100 MG CAPSULE PO SCH (21:00)
[2024-12-05] VITALS: BP 93/47; PULSE 109; RESP 25; TEMP 99.8; O2SAT 100
[2024-12-05 04:00] VITALS: BP 113/64; PULSE 94; RESP 15; TEMP 99; O2SAT 100
[2024-12-05 06:06] LABS: BASOPHILS % (AUTO) 0.1 % (0.0-2.0); EOSINOPHILS % (AUTO) 0 % (1.0-6.0); HEMATOCRIT 25.3 % (41-53); LYMPHOCYTES # (AUTO) 0.8 K/uL (1.0-4.8); LYMPHOCYTES % (AUTO) 1.5 % (22.0-44.0); MEAN CORPUSCULAR HEMOGLOBIN 26.7 pg (26.0-34.0); MEAN CORPUSCULAR HGB CONC 31.8 G/dL (31.0-37.0); MEAN CORPUSCULAR VOLUME 84 fL (80-100); MONOCYTES # (AUTO) 0.8 K/uL (0.1-1.0); MONOCYTES % (AUTO) 1.5 % (2.0-9.0); NEUTROPHILS # (AUTO) 50.9 K/uL (1.8-7.7); PLATELET COUNT (AUTO) 433 K/uL (150-450); RED BLOOD CELL COUNT(AUTO) 3.01 MIL/uL (4.50-5.90); RED CELL DISTRIBUTION WIDTH 16.1 % (11.5-14.5)
[2024-12-05 06:07] LABS: CALCIUM, TOTAL 8.9 mg/dL (8.8-10.5); CREATININE 3.78 mg/dL (0.60-1.30)
[2024-12-05 06:11] LABS: NEUTROPHILS % (AUTO) 96.9 % (40.0-70.0); WHITE BLOOD COUNT (AUTO) 52.4 K/uL (4.5-11.0)
[2024-12-05 08:00] VITALS: BP 130/67; PULSE 100; PULSE 119; RESP 20; TEMP 98.7; O2SAT 100
[2024-12-05] MEDS: PANTOPRAZOLE SODIUM 40 MG DR TABLET PO SCH (08:06)
[2024-12-05] MEDS: CLOPIDOGREL BISULFATE 75 MG TABLET PO SCH (08:06)
[2024-12-05] MEDS ORDERED: PANTOPRAZOLE SODIUM 40 MG DR TABLET PO SCH (09:00)
[2024-12-05 09:13] LABS: ALBUMIN 2.3 g/dL (3.4-5.0); BILIRUBIN,TOTAL 3.8 mg/dL (0.1-1.0); CALCIUM, TOTAL 8.8 mg/dL (8.8-10.5); CREATININE 3.85 mg/dL (0.60-1.30); MAGNESIUM 2.8 mg/dL (1.80-2.40); PHOSPHORUS 4.4 mg/dL (2.5-4.9); TOTAL PROTEIN, SERUM 8.1 g/dL (6.4-8.2)
[2024-12-05 09:26] LABS: TROPONIN I-HIGH SENSITIVITY 157 ng/L (<76)
[2024-12-05 12:00] VITALS: BP 121/72; PULSE 134; RESP 22; TEMP 100.5; O2SAT 100
[2024-12-05] MEDS: ACETAMINOPHEN 325 MG TABLET PO PRN (12:14)
[2024-12-05 14:16] LABS: TROPONIN I-HIGH SENSITIVITY 158 ng/L (<76)
[2024-12-05 16:00] VITALS: BP 115/66; PULSE 116; RESP 19; TEMP 98.8; O2SAT 100
[2024-12-05 18:01] LABS: BASOPHILS % (AUTO) 0.1 % (0.0-2.0); EOSINOPHILS % (AUTO) 0.1 % (1.0-6.0); HEMATOCRIT 22.9 % (41-53); HEMOGLOBIN 7.5 g/dL (13.5-17.5); LYMPHOCYTES # (AUTO) 0.5 K/uL (1.0-4.8); LYMPHOCYTES % (AUTO) 1.2 % (22.0-44.0); MEAN CORPUSCULAR HEMOGLOBIN 27.1 pg (26.0-34.0); MEAN CORPUSCULAR HGB CONC 32.6 G/dL (31.0-37.0); MEAN CORPUSCULAR VOLUME 83 fL (80-100); MONOCYTES # (AUTO) 1.1 K/uL (0.1-1.0); MONOCYTES % (AUTO) 2.7 % (2.0-9.0); NEUTROPHILS # (AUTO) 38.6 K/uL (1.8-7.7); PLATELET COUNT (AUTO) 343 K/uL (150-450); RED BLOOD CELL COUNT(AUTO) 2.76 MIL/uL (4.50-5.90); RED CELL DISTRIBUTION WIDTH 16.2 % (11.5-14.5)
[2024-12-05 18:07] LABS: NEUTROPHILS % (AUTO) 95.9 % (40.0-70.0)
[2024-12-05 18:08] LABS: WHITE BLOOD COUNT (AUTO) 40.2 K/uL (4.5-11.0)
[2024-12-05 18:36] LABS: RBC MORPHOLOGY COMMENT ABNORMAL RBC MORPH
[2024-12-05 20:00] VITALS: BP 119/62; PULSE 113; RESP 25; TEMP 99; O2SAT 100
[2024-12-05] MEDS: ETHYL ALCOHOL 62% ANTISEPTIC NASAL SANITIZER 0.6 ML AMPUL NASAL SCH (23:55)
[2024-12-06] VITALS: BP 107/58; PULSE 123; RESP 12; TEMP 99.5; O2SAT 100
[2024-12-06 04:00] VITALS: BP 86/50; PULSE 123; RESP 21; TEMP 98.8; O2SAT 100
[2024-12-06 05:08] LABS: IGA (IFE) 662 mg/dL (61-437); IGM (IMMUNOFIXATION) 93 mg/dL (15-143)
[2024-12-06 06:19] LABS: MAGNESIUM 2.9 mg/dL (1.80-2.40); PHOSPHORUS 3.7 mg/dL (2.5-4.9)
[2024-12-06 06:21] LABS: ALBUMIN 2.6 g/dL (3.4-5.0); CALCIUM, TOTAL 8.6 mg/dL (8.8-10.5); CREATININE 3.1 mg/dL (0.60-1.30); POTASSIUM 3.7 mmol/L (3.5-5.1); TOTAL PROTEIN, SERUM 7.4 g/dL (6.4-8.2)
[2024-12-06 06:28] LABS: TROPONIN I-HIGH SENSITIVITY 283 ng/L (<76)
[2024-12-06 06:39] LABS: EOSINOPHILS % (AUTO) 0.4 % (1.0-6.0); HEMATOCRIT 22.2 % (41-53); HEMOGLOBIN 7.2 g/dL (13.5-17.5); LYMPHOCYTES # (AUTO) 0.6 K/uL (1.0-4.8); MEAN CORPUSCULAR HEMOGLOBIN 27.1 pg (26.0-34.0); MEAN CORPUSCULAR HGB CONC 32.6 G/dL (31.0-37.0); MEAN CORPUSCULAR VOLUME 83 fL (80-100); MONOCYTES # (AUTO) 0.7 K/uL (0.1-1.0); MONOCYTES % (AUTO) 2.5 % (2.0-9.0); NEUTROPHILS # (AUTO) 28.4 K/uL (1.8-7.7); NEUTROPHILS % (AUTO) 95.1 % (40.0-70.0); PLATELET COUNT (AUTO) 311 K/uL (150-450); RED BLOOD CELL COUNT(AUTO) 2.67 MIL/uL (4.50-5.90); RED CELL DISTRIBUTION WIDTH 15.9 % (11.5-14.5); WHITE BLOOD COUNT (AUTO) 29.9 K/uL (4.5-11.0)
[2024-12-06 08:00] VITALS: BP 127/70; PULSE 90; RESP 17; TEMP 98.5; O2SAT 100
[2024-12-06] MEDS: HEPARIN SODIUM,PORCINE 5,000 UNITS/ML VIAL SQ SCH (10:22)
[2024-12-06] MEDS: ALBUMIN HUMAN 5%-12.5GM/250ML 250 ML IV ONE (10:24)
[2024-12-06 12:00] VITALS: BP 143/80; PULSE 102; RESP 17; TEMP 98.3; O2SAT 100
[2024-12-06] MEDS ORDERED: SODIUM CHLORIDE 0.9% 250 ML IV ONE (15:46)
[2024-12-06 16:00] VITALS: BP 132/91; PULSE 88; RESP 24; O2SAT 100
[2024-12-06] MEDS: PIPERACILLIN SODIUM/TAZOBACTAM 2.25 GM in DEXTROSE 5%-WATER 50 ML IV SCH (18:30)
[2024-12-06 20:00] VITALS: BP 148/71; PULSE 128; RESP 17; TEMP 101.5; O2SAT 100
[2024-12-06] MEDS: CHLORHEXIDINE GLUCONATE 2% TOWELETTE [2'S/6'S] TP SCH (22:35)
[2024-12-07] VITALS (8 sets, daily range): BP systolic 121–143; BP diastolic 58–86; PULSE 70–105; RESP 15–18; TEMP 97.5–97.9; O2SAT 97–100
[2024-12-07 06:09] LABS: BASOPHILS % (AUTO) 0.1 % (0.0-2.0); EOSINOPHILS % (AUTO) 0.6 % (1.0-6.0); HEMATOCRIT 22.4 % (41-53); HEMOGLOBIN 7.5 g/dL (13.5-17.5); LYMPHOCYTES # (AUTO) 0.9 K/uL (1.0-4.8); LYMPHOCYTES % (AUTO) 5.2 % (22.0-44.0); MEAN CORPUSCULAR HEMOGLOBIN 27.8 pg (26.0-34.0); MEAN CORPUSCULAR HGB CONC 33.4 G/dL (31.0-37.0); MEAN CORPUSCULAR VOLUME 83 fL (80-100); MONOCYTES # (AUTO) 0.5 K/uL (0.1-1.0); MONOCYTES % (AUTO) 2.9 % (2.0-9.0); NEUTROPHILS # (AUTO) 16.3 K/uL (1.8-7.7); PLATELET COUNT (AUTO) 225 K/uL (150-450); RED BLOOD CELL COUNT(AUTO) 2.69 MIL/uL (4.50-5.90); RED CELL DISTRIBUTION WIDTH 15.9 % (11.5-14.5); WHITE BLOOD COUNT (AUTO) 17.8 K/uL (4.5-11.0)
[2024-12-07 06:26] LABS: MAGNESIUM 2.6 mg/dL (1.80-2.40); PHOSPHORUS 3.4 mg/dL (2.5-4.9)
[2024-12-07 06:27] LABS: ALBUMIN 2.6 g/dL (3.4-5.0); BILIRUBIN,TOTAL 3.4 mg/dL (0.1-1.0); CALCIUM, TOTAL 8.9 mg/dL (8.8-10.5); CREATININE 2.54 mg/dL (0.60-1.30); POTASSIUM 3.6 mmol/L (3.5-5.1); TOTAL PROTEIN, SERUM 7.5 g/dL (6.4-8.2)
[2024-12-07 06:28] LABS: NEUTROPHILS % (AUTO) 91.2 % (40.0-70.0)
[2024-12-07] MEDS ORDERED: SODIUM CHLORIDE 0.9% 250 ML IV ONE (08:37)
[2024-12-07] MEDS: DEXTROSE 5%-0.45% SODIUM CHL 1,000 ML IV SCH (10:04)
[2024-12-07] MEDS: *CLINICAL-PERIPHERAL PARENTERAL NUTRITION DOSING CLINICAL ONE (10:10)
[2024-12-07 20:52] LABS: INFLUENZA A-RTPCR,COMBO NEGATIVE (NEGATIVE); INFLUENZA B-RTPCR,COMBO NEGATIVE (NEGATIVE); RESPIRATORY SYNCYTIAL VRS-PCR NEGATIVE (NEGATIVE); SARS COVID19 RTPCR, COMBO NEGATIVE (NEGATIVE)
[2024-12-07] MEDS: [UNRECOGNIZED DRUG - OTHER] IV SCH (22:33)
[2024-12-07] MEDS: POTASSIUM PHOS M BASIC D BASIC IV SCH (22:33)
[2024-12-07] MEDS: CALCIUM GLUCONATE IV SCH (22:33)
[2024-12-07] MEDS: PPN IV SCH (22:33)
[2024-12-08] VITALS (10 sets, daily range): BP systolic 118–138; BP diastolic 73–89; PULSE 92–113; RESP 18–19; TEMP 97.5–98.8; O2SAT 95–100
[2024-12-08 08:10] LABS: CALCIUM, TOTAL 9.3 mg/dL (8.8-10.5); CREATININE 2.21 mg/dL (0.60-1.30); POTASSIUM 3.7 mmol/L (3.5-5.1)
[2024-12-08 08:23] LABS: MAGNESIUM 2.1 mg/dL (1.80-2.40); PHOSPHORUS 2.3 mg/dL (2.5-4.9)
[2024-12-08] MEDS: PANTOPRAZOLE SODIUM 40 MG/VIAL IVP SCH (08:34)
[2024-12-08] MEDS ORDERED: SODIUM CHLORIDE 0.9% 250 ML IV ONE ×2 (08:42→12:46)
[2024-12-08] MEDS: HYDROCODONE/ACETAMINOPHEN 5-325 MG TABLET PO PRN (21:40)
[2024-12-08] MEDS: [UNRECOGNIZED DRUG - OTHER] IV SCH (21:41)
[2024-12-08] MEDS: PPN IV SCH (21:41)
[2024-12-08] MEDS: POTASSIUM PHOS M BASIC D BASIC IV SCH (21:41)
[2024-12-08] MEDS: CALCIUM GLUCONATE IV SCH (21:41)
[2024-12-09] VITALS (13 sets, daily range): BP systolic 121–134; BP diastolic 68–78; PULSE 82–107; RESP 17–18; TEMP 97.3–99; O2SAT 98–100
[2024-12-09] MEDS ORDERED: SODIUM CHLORIDE 0.9% 500 ML IV ONE (00:49)
[2024-12-09 06:55] LABS: ALBUMIN 3.7 g/dL (3.4-5.0); BILIRUBIN,TOTAL 2.6 mg/dL (0.1-1.0); CALCIUM, TOTAL 9.6 mg/dL (8.8-10.5); CREATININE 2.02 mg/dL (0.60-1.30); MAGNESIUM 1.9 mg/dL (1.80-2.40); PHOSPHORUS 2.3 mg/dL (2.5-4.9); POTASSIUM 3.9 mmol/L (3.5-5.1); TOTAL PROTEIN, SERUM 8.5 g/dL (6.4-8.2)
[2024-12-09 10:29] LABS: BASOPHILS % (AUTO) 0.4 % (0.0-2.0); EOSINOPHILS % (AUTO) 0.9 % (1.0-6.0); HEMATOCRIT 24.8 % (41-53); HEMOGLOBIN 8.1 g/dL (13.5-17.5); LYMPHOCYTES # (AUTO) 1.1 K/uL (1.0-4.8); LYMPHOCYTES % (AUTO) 8.7 % (22.0-44.0); MEAN CORPUSCULAR HEMOGLOBIN 27.4 pg (26.0-34.0); MEAN CORPUSCULAR HGB CONC 32.7 G/dL (31.0-37.0); MEAN CORPUSCULAR VOLUME 84 fL (80-100); MONOCYTES # (AUTO) 0.5 K/uL (0.1-1.0); MONOCYTES % (AUTO) 3.8 % (2.0-9.0); NEUTROPHILS # (AUTO) 10.4 K/uL (1.8-7.7); PLATELET COUNT (AUTO) 176 K/uL (150-450); RED BLOOD CELL COUNT(AUTO) 2.96 MIL/uL (4.50-5.90); WHITE BLOOD COUNT (AUTO) 12.1 K/uL (4.5-11.0)
[2024-12-09 10:31] LABS: NEUTROPHILS % (AUTO) 86.2 % (40.0-70.0)
[2024-12-09 14:21] LABS: APPEARANCE,URINE CLEAR (CLEAR); BILIRUBIN,URINE NEGATIVE (NEGATIVE); COLOR,URINE YELLOW (YELLOW); GLUCOSE, URINE (UA) NEGATIVE (NEGATIVE); KETONES,URINE NEGATIVE (NEGATIVE); LEUKOCYTE ESTERASE ,URINE LARGE (NEGATIVE); NITRATE,URINE NEGATIVE (NEGATIVE); OCCULT BLOOD,URINE MODERATE (NEGATIVE); PROTEIN,URINE 30-70 mg/dL (NEGATIVE); SPECIFIC GRAVITIY, URINE 1.015 (1.003-1.030); UROBILINOGEN,URINE <=1.0 mg/dL (<=1.0)
[2024-12-09 14:34] LABS: BACTERIA,URINE Many /HPF (None Seen); WBC,URINE 51-100 /HPF (0-5); YEAST,URINE Moderate /HPF (None Seen)
[2024-12-09] MEDS: [UNRECOGNIZED DRUG - OTHER] IV SCH (22:17)
[2024-12-09] MEDS: CALCIUM GLUCONATE IV SCH (22:17)
[2024-12-09] MEDS: PPN IV SCH (22:17)
[2024-12-09] MEDS: POTASSIUM PHOS M BASIC D BASIC IV SCH (22:17)
[2024-12-10] VITALS (9 sets, daily range): BP systolic 118–127; BP diastolic 60–83; PULSE 92–107; RESP 18–20; TEMP 97.3–99; O2SAT 99–100
[2024-12-10 07:16] LABS: CALCIUM, TOTAL 9.9 mg/dL (8.8-10.5); CREATININE 1.75 mg/dL (0.60-1.30); POTASSIUM 3.8 mmol/L (3.5-5.1)
[2024-12-10 07:58] LABS: % IRON SATURATION 18.8 % (30-44)
[2024-12-10 07:59] LABS: PHOSPHORUS 2.7 mg/dL (2.5-4.9)
[2024-12-10] MEDS: SOD FERRIC GLUC COMPLX/SUCROSE 125 MG in SODIUM CHLORIDE 0.9% 100 ML IV SCH (15:24)
[2024-12-11] VITALS (13 sets, daily range): BP systolic 116–138; BP diastolic 57–84; PULSE 94–107; RESP 18–22; TEMP 97.5–99.5; O2SAT 95–99
[2024-12-11 07:46] LABS: BASOPHILS % (AUTO) 0.5 % (0.0-2.0); EOSINOPHILS % (AUTO) 0.8 % (1.0-6.0); HEMATOCRIT 21.3 % (41-53); LYMPHOCYTES # (AUTO) 0.9 K/uL (1.0-4.8); LYMPHOCYTES % (AUTO) 8.2 % (22.0-44.0); MEAN CORPUSCULAR HEMOGLOBIN 27.4 pg (26.0-34.0); MEAN CORPUSCULAR HGB CONC 32.5 G/dL (31.0-37.0); MEAN CORPUSCULAR VOLUME 85 fL (80-100); MONOCYTES # (AUTO) 0.4 K/uL (0.1-1.0); MONOCYTES % (AUTO) 4.1 % (2.0-9.0); PLATELET COUNT (AUTO) 159 K/uL (150-450); RED BLOOD CELL COUNT(AUTO) 2.52 MIL/uL (4.50-5.90); WHITE BLOOD COUNT (AUTO) 10.4 K/uL (4.5-11.0)
[2024-12-11 07:51] LABS: HEMOGLOBIN 6.9 g/dL (13.5-17.5); NEUTROPHILS % (AUTO) 86.4 % (40.0-70.0)
[2024-12-11 08:14] LABS: ALBUMIN 3.9 g/dL (3.4-5.0); BILIRUBIN,TOTAL 1.8 mg/dL (0.1-1.0); CALCIUM, TOTAL 9.8 mg/dL (8.8-10.5); CREATININE 1.7 mg/dL (0.60-1.30); MAGNESIUM 1.9 mg/dL (1.80-2.40); PHOSPHORUS 3.1 mg/dL (2.5-4.9); TOTAL PROTEIN, SERUM 8.7 g/dL (6.4-8.2)
[2024-12-11 09:41] LABS: BASOPHILS % (AUTO) 0.4 % (0.0-2.0); EOSINOPHILS % (AUTO) 1.2 % (1.0-6.0); LYMPHOCYTES # (AUTO) 1.1 K/uL (1.0-4.8); LYMPHOCYTES % (AUTO) 10.9 % (22.0-44.0); MEAN CORPUSCULAR HEMOGLOBIN 27.4 pg (26.0-34.0); MEAN CORPUSCULAR HGB CONC 32.5 G/dL (31.0-37.0); MEAN CORPUSCULAR VOLUME 84 fL (80-100); MONOCYTES # (AUTO) 0.4 K/uL (0.1-1.0); MONOCYTES % (AUTO) 3.7 % (2.0-9.0); NEUTROPHILS # (AUTO) 8.5 K/uL (1.8-7.7); NEUTROPHILS % (AUTO) 83.8 % (40.0-70.0); PLATELET COUNT (AUTO) 163 K/uL (150-450); RED BLOOD CELL COUNT(AUTO) 2.37 MIL/uL (4.50-5.90); RED CELL DISTRIBUTION WIDTH 15.9 % (11.5-14.5); WHITE BLOOD COUNT (AUTO) 10.2 K/uL (4.5-11.0)
[2024-12-11 09:46] LABS: HEMOGLOBIN 6.5 g/dL (13.5-17.5)
[2024-12-11] MEDS ORDERED: SODIUM CHLORIDE 0.9% 250 ML IV ONE (13:44)
[2024-12-11] MEDS: PANTOPRAZOLE SODIUM 40 MG/VIAL IVP SCH (20:33)
[2024-12-11] MEDS: POTASSIUM PHOS M BASIC D BASIC IV SCH (22:34)
[2024-12-11] MEDS: PPN IV SCH (22:34)
[2024-12-11] MEDS: POTASSIUM ACETATE IV SCH (22:34)
[2024-12-11] MEDS: [UNRECOGNIZED DRUG - OTHER] IV SCH (22:34)
[2024-12-12] VITALS (7 sets, daily range): BP systolic 114–124; BP diastolic 56–73; PULSE 95–113; RESP 17–20; TEMP 97.3–98.8; O2SAT 97–100
[2024-12-12 06:39] LABS: BASOPHILS % (AUTO) 0.2 % (0.0-2.0); EOSINOPHILS % (AUTO) 0.8 % (1.0-6.0); HEMOGLOBIN 7.7 g/dL (13.5-17.5); LYMPHOCYTES # (AUTO) 0.7 K/uL (1.0-4.8); LYMPHOCYTES % (AUTO) 5.9 % (22.0-44.0); MEAN CORPUSCULAR HEMOGLOBIN 27.6 pg (26.0-34.0); MEAN CORPUSCULAR HGB CONC 32.3 G/dL (31.0-37.0); MEAN CORPUSCULAR VOLUME 85 fL (80-100); MONOCYTES # (AUTO) 0.3 K/uL (0.1-1.0); MONOCYTES % (AUTO) 2.7 % (2.0-9.0); NEUTROPHILS # (AUTO) 11.1 K/uL (1.8-7.7); PLATELET COUNT (AUTO) 172 K/uL (150-450); RED CELL DISTRIBUTION WIDTH 15.6 % (11.5-14.5); WHITE BLOOD COUNT (AUTO) 12.3 K/uL (4.5-11.0)
[2024-12-12 06:59] LABS: CALCIUM, TOTAL 9.8 mg/dL (8.8-10.5); CREATININE 1.74 mg/dL (0.60-1.30); POTASSIUM 4.3 mmol/L (3.5-5.1)
[2024-12-12 07:03] LABS: PHOSPHORUS 3.3 mg/dL (2.5-4.9)
[2024-12-12 07:04] LABS: NEUTROPHILS % (AUTO) 90.4 % (40.0-70.0)
[2024-12-12 15:07] LABS: ALBUMIN URINE (ELP) 13.4 %; ALPHA-1 URINE (ELP) 8.5 %; TOTAL PROTEIN URINE 764.5 mg/dL (Not Estab.)
[2024-12-12 16:54] LABS: CREATININE,URINE RANDOM 27.6 mg/dL (30.0-125.0)
[2024-12-12] MEDS: SODIUM ACETATE IV SCH (21:46)
[2024-12-12] MEDS: [UNRECOGNIZED DRUG - OTHER] IV SCH (21:46)
[2024-12-12] MEDS: PPN IV SCH (21:46)
[2024-12-12] MEDS: POTASSIUM PHOS M BASIC D BASIC IV SCH (21:46)
[2024-12-12] MEDS ORDERED: POTASSIUM PHOS M BASIC D BASIC IV SCH (22:00)
[2024-12-12] MEDS ORDERED: [UNRECOGNIZED DRUG - OTHER] IV SCH (22:00)
[2024-12-12] MEDS ORDERED: PPN IV SCH (22:00)
[2024-12-12] MEDS ORDERED: SODIUM ACETATE IV SCH (22:00)
[2024-12-12] MEDS ORDERED: SODIUM CHLORIDE 0.9% 1,000 ML ONE (22:01)
[2024-12-13] VITALS (7 sets, daily range): BP systolic 109–121; BP diastolic 63–68; PULSE 90–107; RESP 16–22; TEMP 97.5–99.1; O2SAT 99–100
[2024-12-13 07:22] LABS: BASOPHILS % (AUTO) 0.5 % (0.0-2.0); EOSINOPHILS % (AUTO) 0.8 % (1.0-6.0); HEMATOCRIT 22.4 % (41-53); HEMOGLOBIN 7.1 g/dL (13.5-17.5); LYMPHOCYTES # (AUTO) 0.8 K/uL (1.0-4.8); LYMPHOCYTES % (AUTO) 7.1 % (22.0-44.0); MEAN CORPUSCULAR HEMOGLOBIN 27.4 pg (26.0-34.0); MEAN CORPUSCULAR HGB CONC 31.8 G/dL (31.0-37.0); MEAN CORPUSCULAR VOLUME 86 fL (80-100); MONOCYTES # (AUTO) 0.3 K/uL (0.1-1.0); MONOCYTES % (AUTO) 2.9 % (2.0-9.0); NEUTROPHILS # (AUTO) 9.9 K/uL (1.8-7.7); PLATELET COUNT (AUTO) 194 K/uL (150-450); RED BLOOD CELL COUNT(AUTO) 2.61 MIL/uL (4.50-5.90); RED CELL DISTRIBUTION WIDTH 16.5 % (11.5-14.5); WHITE BLOOD COUNT (AUTO) 11.2 K/uL (4.5-11.0)
[2024-12-13 07:35] LABS: CALCIUM, TOTAL 10.1 mg/dL (8.8-10.5); CREATININE 1.85 mg/dL (0.60-1.30); POTASSIUM 4.5 mmol/L (3.5-5.1)
[2024-12-13 07:37] LABS: MAGNESIUM 2.1 mg/dL (1.80-2.40); PHOSPHORUS 3.8 mg/dL (2.5-4.9)
[2024-12-13 07:47] LABS: NEUTROPHILS % (AUTO) 88.7 % (40.0-70.0)
[2024-12-13 08:07] LABS: FREE KAPPA LIGHT CHAINS,S 148.8 mg/L (3.3-19.4); FREE KAPPA/LAMBDA LT CHN RATIO 0.76 (0.26-1.65)
[2024-12-13] MEDS ORDERED: POTASSIUM PHOS M BASIC D BASIC IV SCH (09:54)
[2024-12-13] MEDS ORDERED: [UNRECOGNIZED DRUG - OTHER] IV SCH (09:54)
[2024-12-13] MEDS ORDERED: SODIUM ACETATE IV SCH (09:54)
[2024-12-13] MEDS ORDERED: PPN IV SCH (09:54)
[2024-12-13 11:09] LABS: ABG BASE EXCESS -12.6 mmol/L (-2.0-3.0); ABG HCO3 15.2 mmol/L (21.0-28.0); ABG METHEMOGLOBIN 0.3 % (0.0-1.5); ABG OXYGEN CONTENT 9.4 mL/dL (15.0-23.0); ABG OXYGEN SATURATION 97.1 % (94.0-98.0); ABG OXYHEMOGLOBIN 95.8 % (94.0-98.0); ABG PCO2 21 mmHg (32.0-48.0); ABG PH 7.387 (7.350-7.450); PO2, ARTERIAL BG 96.1 mmHg (83.0-108.0); SOURCE, BLOOD GAS ARTERIAL; TEMPERATURE, FAHRENHEIT, BG 98.6 FAHREN (96.0-98.6)
[2024-12-13 11:10] LABS: ABG TOTAL HEMOGLOBIN 6.8 G/dL (13.5-17.5); ALLEN TEST, BLOOD GAS Positive; O2 DEVICE,BLOOD GAS ROOM AIR (ROOM AIR); SITE, BLOOD GAS LFT RADIAL
[2024-12-13] MEDS ORDERED: SODIUM CHLORIDE 0.9% 500 ML IV ONE (15:29)
[2024-12-13] MEDS: SODIUM ACETATE IV SCH (22:03)
[2024-12-13] MEDS: SODIUM PHOS M BASIC D BASIC IV SCH (22:03)
[2024-12-13] MEDS: [UNRECOGNIZED DRUG - OTHER] IV SCH (22:03)
[2024-12-13] MEDS: PPN IV SCH (22:03)
[2024-12-14] VITALS (8 sets, daily range): BP systolic 110–124; BP diastolic 65–79; PULSE 84–102; RESP 17–20; TEMP 97.5–98.4; O2SAT 96–100
[2024-12-14 06:58] LABS: BASOPHILS % (AUTO) 0.5 % (0.0-2.0); EOSINOPHILS % (AUTO) 0.8 % (1.0-6.0); HEMATOCRIT 25.6 % (41-53); HEMOGLOBIN 8.2 g/dL (13.5-17.5); LYMPHOCYTES # (AUTO) 0.9 K/uL (1.0-4.8); LYMPHOCYTES % (AUTO) 6.9 % (22.0-44.0); MEAN CORPUSCULAR HEMOGLOBIN 27.7 pg (26.0-34.0); MEAN CORPUSCULAR HGB CONC 32.1 G/dL (31.0-37.0); MEAN CORPUSCULAR VOLUME 86 fL (80-100); MONOCYTES # (AUTO) 0.4 K/uL (0.1-1.0); MONOCYTES % (AUTO) 3.4 % (2.0-9.0); PLATELET COUNT (AUTO) 233 K/uL (150-450); RED BLOOD CELL COUNT(AUTO) 2.97 MIL/uL (4.50-5.90); RED CELL DISTRIBUTION WIDTH 16.1 % (11.5-14.5); WHITE BLOOD COUNT (AUTO) 12.4 K/uL (4.5-11.0)
[2024-12-14 07:02] LABS: NEUTROPHILS % (AUTO) 88.4 % (40.0-70.0)
[2024-12-14 07:12] LABS: BILIRUBIN,TOTAL 1.4 mg/dL (0.1-1.0); CALCIUM, TOTAL 10.4 mg/dL (8.8-10.5); CREATININE 1.92 mg/dL (0.60-1.30); MAGNESIUM 2.1 mg/dL (1.80-2.40); PHOSPHORUS 3.8 mg/dL (2.5-4.9); POTASSIUM 4.5 mmol/L (3.5-5.1)
[2024-12-14] MEDS ORDERED: MELATONIN 3 MG TABLET PO PRN (13:15)
[2024-12-14] MEDS ORDERED: PARoxetine HCL 10 MG TABLET PO SCH (13:15)
[2024-12-14] MEDS: FLUCONAZOLE 200 MG/NACL ISOOSM 100 ML IV SCH (14:35)
[2024-12-14] MEDS ORDERED: QUEtiapine FUMARATE 25 MG TABLET PO SCH (21:00)
[2024-12-15 00:02] VITALS: BP 120/68; PULSE 99; RESP 18; TEMP 98.1; O2SAT 100
[2024-12-15 04:13] VITALS: BP 111/67; PULSE 89; RESP 19; TEMP 97.9; O2SAT 100
[2024-12-15 06:42] LABS: BASOPHILS % (AUTO) 0.4 % (0.0-2.0); EOSINOPHILS % (AUTO) 1.2 % (1.0-6.0); HEMATOCRIT 24.7 % (41-53); HEMOGLOBIN 8.2 g/dL (13.5-17.5); LYMPHOCYTES # (AUTO) 1.1 K/uL (1.0-4.8); MEAN CORPUSCULAR HEMOGLOBIN 28.9 pg (26.0-34.0); MEAN CORPUSCULAR HGB CONC 33.2 G/dL (31.0-37.0); MEAN CORPUSCULAR VOLUME 87 fL (80-100); MONOCYTES # (AUTO) 0.5 K/uL (0.1-1.0); MONOCYTES % (AUTO) 4.9 % (2.0-9.0); NEUTROPHILS # (AUTO) 8.5 K/uL (1.8-7.7); NEUTROPHILS % (AUTO) 82.5 % (40.0-70.0); PLATELET COUNT (AUTO) 263 K/uL (150-450); RED BLOOD CELL COUNT(AUTO) 2.84 MIL/uL (4.50-5.90); RED CELL DISTRIBUTION WIDTH 16.6 % (11.5-14.5); WHITE BLOOD COUNT (AUTO) 10.4 K/uL (4.5-11.0)
[2024-12-15 06:49] LABS: CALCIUM, TOTAL 10.3 mg/dL (8.8-10.5); CREATININE 2.01 mg/dL (0.60-1.30); POTASSIUM 4.4 mmol/L (3.5-5.1)
[2024-12-15 06:58] LABS: MAGNESIUM 2.2 mg/dL (1.80-2.40); PHOSPHORUS 4.1 mg/dL (2.5-4.9)
[2024-12-15 08:05] VITALS: BP 115/65; PULSE 78; RESP 18; TEMP 97.7; O2SAT 100
[2024-12-15 11:30] VITALS: BP 116/72; PULSE 82; RESP 19; TEMP 98; O2SAT 99
[2024-12-15 15:48] VITALS: BP 116/71; PULSE 90; RESP 18; TEMP 98.2; O2SAT 100
[2024-12-15 20:00] VITALS: BP 126/62; PULSE 103; RESP 18; TEMP 97.9; O2SAT 100
[2024-12-15] MEDS: PPN IV SCH (22:57)
[2024-12-15] MEDS: [UNRECOGNIZED DRUG - OTHER] IV SCH (22:57)
[2024-12-15] MEDS: SODIUM ACETATE IV SCH (22:57)
[2024-12-15] MEDS: SODIUM PHOS M BASIC D BASIC IV SCH (22:57)
[2024-12-16] VITALS: BP 108/76; PULSE 104; RESP 18; TEMP 98.1; O2SAT 100
[2024-12-16 06:47] LABS: BASOPHILS % (AUTO) 0.4 % (0.0-2.0); EOSINOPHILS % (AUTO) 1.8 % (1.0-6.0); HEMATOCRIT 27.3 % (41-53); HEMOGLOBIN 8.8 g/dL (13.5-17.5); LYMPHOCYTES # (AUTO) 0.9 K/uL (1.0-4.8); MEAN CORPUSCULAR HEMOGLOBIN 28.1 pg (26.0-34.0); MEAN CORPUSCULAR HGB CONC 32.1 G/dL (31.0-37.0); MEAN CORPUSCULAR VOLUME 88 fL (80-100); MONOCYTES # (AUTO) 0.4 K/uL (0.1-1.0); MONOCYTES % (AUTO) 4.7 % (2.0-9.0); NEUTROPHILS # (AUTO) 7.8 K/uL (1.8-7.7); NEUTROPHILS % (AUTO) 83.1 % (40.0-70.0); PLATELET COUNT (AUTO) 310 K/uL (150-450); RED BLOOD CELL COUNT(AUTO) 3.12 MIL/uL (4.50-5.90); RED CELL DISTRIBUTION WIDTH 16.8 % (11.5-14.5); WHITE BLOOD COUNT (AUTO) 9.4 K/uL (4.5-11.0)
[2024-12-16 07:03] LABS: ALBUMIN 3.6 g/dL (3.4-5.0); BILIRUBIN,TOTAL 0.8 mg/dL (0.1-1.0); CALCIUM, TOTAL 10.7 mg/dL (8.8-10.5); CREATININE 1.88 mg/dL (0.60-1.30); MAGNESIUM 2.1 mg/dL (1.80-2.40); POTASSIUM 4.8 mmol/L (3.5-5.1); TOTAL PROTEIN, SERUM 9.6 g/dL (6.4-8.2)
[2024-12-16 07:16] VITALS: BP 115/73; PULSE 102; RESP 20; TEMP 98; O2SAT 98
[2024-12-16 12:01] VITALS: BP 102/66; PULSE 102; RESP 20; TEMP 98.1; O2SAT 97
[2024-12-16 15:21] VITALS: BP 110/73; PULSE 100; RESP 18; TEMP 98.2; O2SAT 96
[2024-12-16 19:27] VITALS: BP 106/71; PULSE 100; RESP 19; TEMP 97.5; O2SAT 100
[2024-12-16] MEDS: SODIUM ACETATE IV SCH (21:59)
[2024-12-16] MEDS: PPN IV SCH (21:59)
[2024-12-16] MEDS: [UNRECOGNIZED DRUG - OTHER] IV SCH (21:59)
[2024-12-16] MEDS: SODIUM PHOS M BASIC D BASIC IV SCH (21:59)
[2024-12-16 23:14] VITALS: BP 112/70; PULSE 100; RESP 19; TEMP 97.7; O2SAT 96
[2024-12-17 04:41] VITALS: BP 99/68; PULSE 100; RESP 18; TEMP 97.9; O2SAT 95
[2024-12-17 06:50] LABS: CALCIUM, TOTAL 10.5 mg/dL (8.8-10.5); CREATININE 1.84 mg/dL (0.60-1.30); POTASSIUM 4.8 mmol/L (3.5-5.1)
[2024-12-17 06:54] LABS: MAGNESIUM 2.1 mg/dL (1.80-2.40)
[2024-12-17 08:37] VITALS: BP 123/83; PULSE 104; RESP 18; TEMP 98.1
[2024-12-17 12:30] VITALS: BP 116/71; PULSE 101; RESP 18; TEMP 98.3; O2SAT 99
[2024-12-17 15:22] VITALS: BP 121/85; RESP 18; O2SAT 99
[2024-12-17] MEDS: MORPHINE SULFATE 2 MG/ML SYRINGE IVP PRN (15:24)
[2024-12-17 16:20] VITALS: BP 109/80; PULSE 93; RESP 18; TEMP 98; O2SAT 100
[2024-12-17 19:57] VITALS: BP 111/62; PULSE 99; RESP 18; TEMP 97.9; O2SAT 100
[2024-12-18 04:31] VITALS: BP 114/72; PULSE 95; RESP 18; TEMP 97.7; O2SAT 97
[2024-12-18 07:51] LABS: BASOPHILS % (AUTO) 0.5 % (0.0-2.0); EOSINOPHILS % (AUTO) 2.7 % (1.0-6.0); HEMATOCRIT 25.8 % (41-53); HEMOGLOBIN 8.4 g/dL (13.5-17.5); LYMPHOCYTES # (AUTO) 1.1 K/uL (1.0-4.8); MEAN CORPUSCULAR HEMOGLOBIN 28.4 pg (26.0-34.0); MEAN CORPUSCULAR HGB CONC 32.5 G/dL (31.0-37.0); MEAN CORPUSCULAR VOLUME 87 fL (80-100); MONOCYTES # (AUTO) 0.5 K/uL (0.1-1.0); NEUTROPHILS # (AUTO) 5.9 K/uL (1.8-7.7); NEUTROPHILS % (AUTO) 75.8 % (40.0-70.0); PLATELET COUNT (AUTO) 364 K/uL (150-450); RED BLOOD CELL COUNT(AUTO) 2.96 MIL/uL (4.50-5.90); RED CELL DISTRIBUTION WIDTH 17.3 % (11.5-14.5); WHITE BLOOD COUNT (AUTO) 7.8 K/uL (4.5-11.0)
[2024-12-18 07:53] LABS: MAGNESIUM 1.9 mg/dL (1.80-2.40); PHOSPHORUS 4.2 mg/dL (2.5-4.9)
[2024-12-18 07:57] LABS: CALCIUM, TOTAL 10.3 mg/dL (8.8-10.5); CREATININE 1.72 mg/dL (0.60-1.30); POTASSIUM 4.6 mmol/L (3.5-5.1)
[2024-12-18 08:38] VITALS: BP 95/61; PULSE 96; RESP 18; TEMP 97.3; O2SAT 100
[2024-12-18] MEDS ORDERED: SODIUM CHLORIDE 0.9% 500 ML IV ONE (13:48)
[2024-12-18 16:05] VITALS: BP 108/67; PULSE 95; RESP 18; TEMP 97.3; O2SAT 100
[2024-12-18 19:40] VITALS: BP 113/69; PULSE 104; RESP 18; TEMP 97.9; O2SAT 100
[2024-12-19 05:10] VITALS: BP 120/85; PULSE 101; RESP 18; TEMP 97.8; O2SAT 100
[2024-12-19 08:35] VITALS: BP 125/72; PULSE 95; RESP 18; TEMP 98.1; O2SAT 100
[2024-12-19 16:30] VITALS: BP 109/83; PULSE 104; RESP 18; TEMP 97.6; O2SAT 99
[2024-12-19 20:35] VITALS: BP 112/71; PULSE 104; RESP 20; TEMP 97.3; O2SAT 98
[2024-12-20 05:27] VITALS: BP 115/73; PULSE 94; RESP 18; TEMP 97.9; O2SAT 99
[2024-12-20 08:07] VITALS: BP 108/75; PULSE 85; RESP 18; TEMP 97.5; O2SAT 100
[2024-12-20] MEDS ORDERED: SODIUM CHLORIDE 0.9% 250 ML IV ONE (11:56)
[2024-12-20 15:12] VITALS: BP 117/79; PULSE 93; RESP 18; TEMP 97.9; O2SAT 100
[2024-12-20 19:50] VITALS: BP 119/72; PULSE 96; RESP 18; TEMP 98.2; O2SAT 100
[2024-12-21 04:28] VITALS: BP 120/79; PULSE 101; RESP 18; TEMP 97.7; O2SAT 100
[2024-12-21 07:04] LABS: BASOPHILS % (AUTO) 1.2 % (0.0-2.0); EOSINOPHILS % (AUTO) 3.7 % (1.0-6.0); HEMATOCRIT 28.2 % (41-53); HEMOGLOBIN 9.3 g/dL (13.5-17.5); LYMPHOCYTES # (AUTO) 1.6 K/uL (1.0-4.8); LYMPHOCYTES % (AUTO) 21.7 % (22.0-44.0); MEAN CORPUSCULAR HEMOGLOBIN 28.2 pg (26.0-34.0); MEAN CORPUSCULAR HGB CONC 32.8 G/dL (31.0-37.0); MEAN CORPUSCULAR VOLUME 86 fL (80-100); MONOCYTES # (AUTO) 0.5 K/uL (0.1-1.0); MONOCYTES % (AUTO) 6.8 % (2.0-9.0); NEUTROPHILS # (AUTO) 4.8 K/uL (1.8-7.7); NEUTROPHILS % (AUTO) 66.6 % (40.0-70.0); PLATELET COUNT (AUTO) 430 K/uL (150-450); RED BLOOD CELL COUNT(AUTO) 3.29 MIL/uL (4.50-5.90); RED CELL DISTRIBUTION WIDTH 17.1 % (11.5-14.5); WHITE BLOOD COUNT (AUTO) 7.2 K/uL (4.5-11.0)
[2024-12-21 07:29] LABS: CALCIUM, TOTAL 10.9 mg/dL (8.8-10.5); CREATININE 1.62 mg/dL (0.60-1.30); POTASSIUM 4.2 mmol/L (3.5-5.1)
[2024-12-21 07:32] LABS: MAGNESIUM 1.9 mg/dL (1.80-2.40); PHOSPHORUS 3.9 mg/dL (2.5-4.9)
[2024-12-21 08:08] VITALS: BP 116/72; PULSE 99; RESP 18; TEMP 98.4; O2SAT 100
[2024-12-21] MEDS ORDERED: SODIUM CHLORIDE 0.9% 250 ML IV ONE (18:39)
[2024-12-21 19:30] VITALS: BP 125/75; PULSE 102; RESP 18; TEMP 98.2; O2SAT 100
[2024-12-21] MEDS: CITRIC ACID/SODIUM CITRATE 30 ML SOLUTION UDCUP PO SCH (20:05)
[2024-12-22 04:38] VITALS: BP 114/80; PULSE 95; RESP 18; TEMP 98.6; O2SAT 100
[2024-12-22 08:13] VITALS: BP 84/50; PULSE 99; RESP 16; TEMP 98.2; O2SAT 100
[2024-12-22] MEDS ORDERED: CHLO3800 TP (12:12)
[2024-12-22] MEDS ORDERED: CIPR250T6 PO (12:13)
[2024-12-22] MEDS ORDERED: [UNRECOGNIZED DRUG - CODE] PO (12:15)
[2024-12-22] MEDS ORDERED: DOCU-385 PO (12:16)
[2024-12-22] MEDS ORDERED: PANT-31 PO (12:17)
[2024-12-22] MEDS ORDERED: TAMS0.4C94 PO (12:18)
[2024-12-22] MEDS ORDERED: ACET-2247 PO (12:19)
[2024-12-22] MEDS ORDERED: MAGN-169 PO (12:19)
[2024-12-22] MEDS ORDERED: BISA10SU11 PR (12:20)
[2024-12-22 16:11] VITALS: BP 105/60; PULSE 84; RESP 18; TEMP 98; O2SAT 99
[2024-12-23] MEDS ORDERED: CIPROFLOXACIN HCL 250 MG TABLET PO SCH (09:00)
== END 2024-12-22 20:02 | DRG 871 ==
LOC: EMS 10:28 → EDH 14:02 → ICU 16:29 → 5S 12-07 06:37 → 6S 12-17 14:00
PROVIDERS: ADMIT Internal Medicine; ATTEND Internal Medicine
PROC: 0T2BX0Z Change Drainage Device in Bladder, External Approach (ICD-10-PCS; 2024-12-04)
PROC: 30233N1 Transfusion of Nonautologous Red Blood Cells into Peripheral Vein, Percutaneous Approach (ICD-10-PCS; principal; 2024-12-11)
DX: A41.9 Sepsis, unspecified organism (principal); G93.41 Metabolic encephalopathy; R65.21 Severe sepsis with septic shock; E87.20 Acidosis, unspecified; N39.0 Urinary tract infection, site not specified; E44.0 Moderate protein-calorie malnutrition; N32.1 Vesicointestinal fistula; E87.0 Hyperosmolality and hypernatremia; K57.80 Diverticulitis of intestine, part unspecified, with perforation and abscess without bleeding; K92.1 Melena; N17.9 Acute kidney failure, unspecified; Z20.822 Contact with and (suspected) exposure to COVID-19; T83.021A Displacement of indwelling urethral catheter, initial encounter; E87.5 Hyperkalemia; E86.0 Dehydration; E83.51 Hypocalcemia; E87.6 Hypokalemia; E78.00 Pure hypercholesterolemia, unspecified; I25.10 Atherosclerotic heart disease of native coronary artery without angina pectoris; K74.60 Unspecified cirrhosis of liver; D63.1 Anemia in chronic kidney disease; I12.9 Hypertensive chronic kidney disease with stage 1 through stage 4 chronic kidney disease, or unspecified chronic kidney disease; Z60.2 Problems related to living alone; E78.5 Hyperlipidemia, unspecified; N18.9 Chronic kidney disease, unspecified; R31.0 Gross hematuria; R80.9 Proteinuria, unspecified; N36.8 Other specified disorders of urethra; N40.0 Benign prostatic hyperplasia without lower urinary tract symptoms; R62.7 Adult failure to thrive; Y73.8 Miscellaneous gastroenterology and urology devices associated with adverse incidents, not elsewhere classified; K57.30 Diverticulosis of large intestine without perforation or abscess without bleeding; N28.1 Cyst of kidney, acquired; Z82.49 Family history of ischemic heart disease and other diseases of the circulatory system; Z87.891 Personal history of nicotine dependence; Z88.6 Allergy status to analgesic agent; Z95.5 Presence of coronary angioplasty implant and graft; Z68.23 Body mass index [BMI] 23.0-23.9, adult
CPT/HCPCS: 0241U; 70450; 71045; 71250; 72192; 74150; 76705; 76770; 80048; 80053; 80076; 80307; 81001; 82140; 82271; 82330; 82550; 82570; 82728; 82784; 82805; 83540; 83550; 83605; 83735; 83880; 83883; 84100; 84156; 84166; 84300; 84484; 84540; 85025; 85610; 85730; 86334; 86850; 86900; 86901; 86923; 87040; 87081; 87086; 87106; 87804; 92526; 92610; 93005; 94640; 97110; 97116; 97163; 97530; 99285; G0480; J0610; J0696; J1450; J1644; J1815; J1940; J2270; J2470; J2543; J2916; J3430; J3475; J3490; J7030; J7040; J7050; J7060; J7070; P9016; P9041; P9046; 36415-L1; 36415-TC; X7700